=== PATIENT | male | born 1950 | race Caucasian/White ===

== ENCOUNTER 2018-07-06 22:38 | Emergency (ER) | payer OTHER ==
[~2018-07-06] VITALS: Ht 175.3 cm; Wt 78.0 kg
[~2018-07-06 22:38] MED LIST: AVAPRO300 MG PO; PLAVIX 75MG PO
== END 2018-07-07 | disposition home or self-care (01) ==
LOC: ER 22:38
DX: R41.0 Disorientation, unspecified (principal); G45.9 Transient cerebral ischemic attack, unspecified